=== PATIENT | male | born 1975 | race Caucasian/White ===

== ENCOUNTER 2024-05-09 09:13 | Emergency (ER) | payer OTHER, SELFPAY ==
--- NOTE | 2024-05-09 09:17 | ED.EAR ---
HPI - Ear Problem General Chief complaint: Ear Stated complaint: EARACHE Time Seen by Provider: 05/09/24 09:30 Source: patient Mode of arrival: ambulatory Limitations: no limitations History of Present Illness HPI Narrative: Onel is a 49-year-old male patient presenting to the clinic today with complaints of right ear pain/pressure/tinnitus. He reports this has been going on for few days. Had a cold last week and still has somewhat of a lingering cough and mild congestion. Denies any fever or chills. Denies any dizziness, visual changes, or headache. Related Data Allergies Allergy/AdvReac Type Severity Reaction Status Date / Time No Known Allergies Allergy Verified 05/09/24 09:50 Review of Systems Review of Systems: Pertinent positives per HPI. Patient denies any fever, chills, rash, headache, visual changes, dizziness, sore throat, shortness of breath, chest pain, palpitations, nausea, vomiting, diarrhea, constipation, abdominal pain, or any urinary issues. PMFSH Comments At the time of my signature, I reviewed and agree with the nursing past medical, surgical, social, and family history. There is no relevant family history pertinent to the patient complaint. Exam Narrative: General: Well-developed, well nourished, in no apparent distress Head: Normocephalic, atraumatic Eyes: Pupils equally round and reactive to light bilaterally, EOM intact, sclera and conjunctive clear, no discharge, lids normal Ears: TMs intact, fluid noted behind the TM with mild congestion right worse than left, ear canals clear, no drainage, grossly hearing normal. Nose: Nares patent, clear discharge, no inflammation, no sinus tenderness. Mouth: Oropharynx without lesions or masses, good dentition, MMM. Neck: Supple, trachea midline, no enlargement of anterior or posterior cervical nodes, no thyroid masses or goiter palpable. Cardio: Regular rate and rhythm, s1 and s2 normal, no murmur appreciated. Resp: Clear to auscultation bilaterally anteriorly and posteriorly, no rhonchi, rales, wheezing or rubs Course Course Emergency Course: Portions of this record may have been created with voice recognition software. Level of Care: Express Care Visit Vital Signs Vital signs: Vital signs reviewed Medical Decision Making MDM Narrative Medical decision making narrative: At the time of visit patient is resting comfortably on the exam table. Patient appears to be nontoxic. Plan: I suspect patient has bilateral serous otitis media as well as tinnitus in the right ear. Prescription for prednisone was sent to the pharmacy. Recommend completing Flonase and [id number]-[id number] histamine such as Zyrtec or Claritin as well. What the patient follow-up with his primary care doctor or ENT provider. Supportive measures were discussed with the patient and they voiced understanding discharge instructions and agrees to treatment plan. Return precautions reviewed Differential Diagnosis Differential Diagnosis: Otitis media, otitis externa eustachian tube dysfunction, cerumen impaction, upper respiratory infection, serous otitis, tinnitus, Meniere's disease Discharge Plan Discharge Clinical Impression: Acute serous otitis media, Tinnitus Patient Disposition: Home, Self-Care Condition: Stable Instructions: Antibiotic Form, Tinnitus (ED), Fluid In The Ear (Serous Otitis Media) (ED) Additional Instructions: Take any prescribed medications only as directed-prednisone Tylenol/motrin as needed for pain May use Flonase and [id number] antihistamine such as Zyrtec or Claritin. May use heating pad to alleviate pain If you get recurrent ear infections it may be warranted to follow up with ENT. Follow up with your PCP in 3-5 days if symptoms persist. Prescriptions: New prednisone 20 mg tablet 40 mg PO DAILY 5 Days Qty: 10 0RF Follow-up/Referrals: Magnus Thapa MD [Primary Care Provider] - Time of Disposition: 09:3
[2024-05-09 09:23] VITALS: BP 154/104; PULSE 80; RESP 16; TEMP 36.7; O2SAT 100
== END 2024-05-09 09:41 | disposition home or self-care (01) ==
PROVIDERS: Emergency Provider Nurse Practitioner Family; PCP Emergency Medicine
DX: H65.03 Acute serous otitis media, bilateral (principal); H93.11 Tinnitus, right ear
CPT/HCPCS: 99213; G0463

== ENCOUNTER 2024-07-29 10:20 | Emergency (ER) | payer OTHER, SELFPAY ==
[2024-07-29 10:30] VITALS: BP 131/99; PULSE 77; RESP 16; TEMP 36.5; O2SAT 100
--- NOTE | 2024-07-29 10:36 | ED_ITS ---
HPI - Ear Problem General Chief complaint: Ear Stated complaint: Ear Pain Time Seen by Provider: 07/29/24 10:36 Source: patient Mode of arrival: ambulatory Limitations: no limitations History of Present Illness HPI Narrative: Onel is a 49-year-old male patient presenting to the clinic today with complaints of 1-2 day history of right ear pain. He reports he had an ear infection 3 months ago and was given amoxicillin and that took care but however now it has returned. He denies any URI symptoms, fevers, chills, body aches. Related Data Allergies Allergy/AdvReac Type Severity Reaction Status Date / Time No Known Allergies Allergy Verified 07/29/24 10:34 Review of Systems Review of Systems: Pertinent positives per HPI. Patient denies any fever, chills, rash, headache, visual changes, dizziness, cough, shortness of breath, chest pain, palpitations, nausea, vomiting, diarrhea, constipation, abdominal pain, or any urinary issues. PMFSH Comments At the time of my signature, I reviewed and agree with the nursing past medical, surgical, social, and family history. There is no relevant family history pertinent to the patient complaint. Exam Narrative: General: Well-developed, well nourished, in no apparent distress Head: Normocephalic, atraumatic Eyes: Pupils equally round and reactive to light bilaterally, EOM intact, sclera and conjunctive clear, no discharge, lids normal Ears: Left TM intact and clear, right TM intact, bulging, red, ear canals clear, no drainage, grossly hearing normal. Nose: Nares patent, no discharge, no inflammation, no sinus tenderness. Mouth: Oral pharynx without lesions or masses, good dentition, MMM. Neck: Supple, trachea midline, no enlargement of anterior or posterior cervical nodes, no thyroid masses or goiter palpable. Cardio: Regular rate and rhythm, s1 and s2 normal, no murmur appreciated. Resp: Clear to auscultation bilaterally, no rhonchi, rales, wheezing or rubs Course Course Emergency Course: Portions of this record may have been created with voice recognition software. Level of Care: Express Care Visit Vital Signs Vital signs: Vital Signs Temperature 36.5 C 07/29/24 10:30 Pulse Rate 77 07/29/24 10:30 Respiratory Rate 16 07/29/24 10:30 Blood Pressure 131/99 H 07/29/24 10:30 Pulse Oximetry 100 07/29/24 10:30 Temperature 36.5 C 07/29/24 10:30 Pulse Rate 77 07/29/24 10:30 Respiratory Rate 16 07/29/24 10:30 Blood Pressure 131/99 H 07/29/24 10:30 Pulse Oximetry 100 07/29/24 10:30 Vital signs reviewed Medical Decision Making MDM Narrative Medical decision making narrative: At the time of visit patient is resting comfortably on the exam table. Patient appears to be nontoxic. Plan: I suspect patient has otitis media right ear. Prescription for Augmentin was sent to the pharmacy. Supportive measures were discussed with the patient and they voiced understanding discharge instructions and agrees to treatment plan. Return precautions reviewed Differential Diagnosis Differential Diagnosis: Otitis media, otitis externa, eustachian tube dysfunction, cerumen impaction, upper respiratory infection, serous otitis Vital Signs Vital Signs: Vital Signs Temperature 36.5 C 07/29/24 10:30 Pulse Rate 77 07/29/24 10:30 Respiratory Rate 16 07/29/24 10:30 Blood Pressure 131/99 H 07/29/24 10:30 Pulse Oximetry 100 07/29/24 10:30 Temperature 36.5 C 07/29/24 10:30 Pulse Rate 77 07/29/24 10:30 Respiratory Rate 16 07/29/24 10:30 Blood Pressure 131/99 H 07/29/24 10:30 Pulse Oximetry 100 07/29/24 10:30 Discharge Plan Discharge Clinical Impression: Acute right otitis media Patient Disposition: Home, Self-Care Condition: Stable Instructions: Antibiotic Form, Ear Infection (ED) Additional Instructions: Take any prescribed medications only as directed-Augmentin Tylenol/motrin as needed for pain May use heating pad to alleviate pain If you get recurrent ear infections it may be warranted to follow up with ENT. Follow up with your PCP in 3-5 days if symptoms persist. Prescriptions: New amoxicillin-pot clavulanate 875-125 mg tablet 1 tablet PO Q12H 10 Days Qty: 20 0RF Follow-up/Referrals: PHYSICIAN,PROFESSOR OF THEATER [Primary Care Provider] - Time of Disposition: 10:37 Quality NIHSS Nursing Documentation ED NIHSS nursing documentation: reviewed/agree
== END 2024-07-29 10:48 | disposition home or self-care (01) ==
PROVIDERS: Emergency Provider Nurse Practitioner Family
DX: H66.91 Otitis media, unspecified, right ear (principal)
CPT/HCPCS: 99213; G0463

== ENCOUNTER 2024-09-06 14:00 | Emergency (ER) | payer OTHER, SELFPAY ==
[2024-09-06 14:11] VITALS: BP 158/110; PULSE 81; RESP 18; TEMP 36.2; O2SAT 100
--- NOTE | 2024-09-06 14:24 | ED.EAR ---
HPI - Ear Problem General Chief complaint: Ear Stated complaint: Ear Left Time Seen by Provider: 09/06/24 14:24 Source: patient Mode of arrival: ambulatory Limitations: no limitations History of Present Illness HPI Narrative: 49-year-old male presents with complaint of left ear pain for 1 day. Patient reports recent URI, symptoms resolving. Afebrile. All systems reviewed and negative except as noted above. Related Data Allergies Allergy/AdvReac Type Severity Reaction Status Date / Time No Known Allergies Allergy Verified 09/06/24 14:20 Review of Systems Review of Systems: CONSTITUTIONAL: Denies fever, chills, or sweats. EYES: Denies visual changes, redness, or discharge. ENT: Denies rhinorrhea, congestion, sore throat. Reports left ear pain. CARDIOVASCULAR: Denies chest pain, palpitations, or edema. RESPIRATORY: Denies cough or dyspnea. GASTROINTESTINAL: Denies abdominal pain, nausea, vomiting, or diarrhea. GENITOURINARY: Denies dysuria or hematuria. SKIN: Denies rash or itching. MUSCULOSKELETAL: Denies back pain, joint pain, or myalgia. NEUROLOGIC: Denies headache, numbness, or weakness. PSYCHIATRIC: Denies anxiety or depression. All other systems reviewed are negative, except as documented in HPI. PMFSH Comments At time of signature, agree with nursing past medical, surgical, social and family history. There is no relevant family history pertinent to the presenting complaint. Exam Narrative: GENERAL: This is a well-nourished, well-developed patient, in no apparent distress. HEAD: normocephalic, atraumatic. EYES: PERRL. Sclera clear/white. Vision is grossly intact. EARS: External ears normal, auditory canals clear and without drainage, right TM normal. Left TM is erythematous bulging and bubbling with fluid. No perforation bilaterally. NOSE: External nose normal with clear nasal drainage with mild congestion THROAT: Mucous membranes moist, posterior pharynx clear. NECK: Neck supple, non-tender without lymphadenopathy, masses or thyromegaly. CARDIOVASCULAR: Regular rate and rhythm without murmurs, gallops, or rubs. RESPIRATORY: Clear to auscultation. Breath sounds equal bilaterally. No wheezes, rales, or rhonchi. SKIN: warm, Dry, intact with no suspicious lesions or rash, good texture and turgor. NEURO: awake, alert, and oriented to person, place and time. There were no obvious focal neurologic abnormalities. EXTREMITIES: No joint tenderness, effusion, or edema noted. Course Course Level of Care: Express Care Visit Vital Signs Vital signs: Vital Signs Temperature 36.2 C L 09/06/24 14:11 Pulse Rate 81 09/06/24 14:11 Respiratory Rate 18 09/06/24 14:11 Blood Pressure 158/110 H 09/06/24 14:11 Pulse Oximetry 100 09/06/24 14:11 Oxygen Delivery Room Air 09/06/24 14:11 Temperature 36.2 C L 09/06/24 14:11 Pulse Rate 81 09/06/24 14:11 Respiratory Rate 18 09/06/24 14:11 Blood Pressure 158/110 H 09/06/24 14:11 Pulse Oximetry 100 09/06/24 14:11 Oxygen Delivery Room Air 09/06/24 14:11 Reviewed Medical Decision Making MDM Narrative Medical decision making narrative: Patient is aware of diagnosis, understands and agrees to treatment plan. Anticipatory guidance given. Patient agrees to follow-up as directed and is aware of reasons to seek care at the emergency department. Portions of this record may have been created with voice recognition software Vital Signs Vital Signs: Vital Signs Temperature 36.2 C L 09/06/24 14:11 Pulse Rate 81 09/06/24 14:11 Respiratory Rate 18 09/06/24 14:11 Blood Pressure 158/110 H 09/06/24 14:11 Pulse Oximetry 100 09/06/24 14:11 Oxygen Delivery Room Air 09/06/24 14:11 Temperature 36.2 C L 09/06/24 14:11 Pulse Rate 81 09/06/24 14:11 Respiratory Rate 18 09/06/24 14:11 Blood Pressure 158/110 H 09/06/24 14:11 Pulse Oximetry 100 09/06/24 14:11 Oxygen Delivery Room Air 09/06/24 14:11 Discharge Plan Discharge Clinical Impression: Acute left otitis media, Elevated blood pressure reading Patient Disposition: Home, Self-Care Condition: Stable Instructions: Antibiotic Form, Ear Infection (ED) Additional Instructions: Take antibiotic as prescribed until gone. Take Zyrtec and use Flonase daily. Take ibuprofen or Tylenol every 6-8 hours as needed for pain. Your blood pressure is elevated today. Follow-up in 1 week with your primary care physician to recheck. Follow-up with your primary care physician if pain is not improving. Patient Language: Ukrainian Prescriptions: New amoxicillin 875 mg tablet 875 mg PO Q12H 10 Days Qty: 20 0RF Follow-up/Referrals: UNKNOWN,DOCTOR [Primary Care Provider] - Time of Disposition: 14:34
== END 2024-09-06 14:37 | disposition home or self-care (01) ==
PROVIDERS: Emergency Provider Nurse Practitioner Family
DX: H66.92 Otitis media, unspecified, left ear (principal); R03.0 Elevated blood-pressure reading, without diagnosis of hypertension
CPT/HCPCS: 99213; G0463

== ENCOUNTER 2024-10-29 08:00 | Emergency (ER) | payer OTHER, SELFPAY ==
--- NOTE | 2024-10-29 08:03 | ED_ITS ---
HPI - Ear Problem General Chief complaint: Ear Stated complaint: EARACHE Source: patient and RN notes reviewed Mode of arrival: ambulatory Limitations: no limitations History of Present Illness HPI Narrative: Patient is a 49-year-old male who presents to the [facility] with complaints of right ear pain. He states that the pain developed last night. He denies ear drainage. States that he has similar pain in his left ear it was diagnosed with an ear infection. He states that at that time, he waited and the infection got really bad. He wanted to come get checked out. He reports recent cold over the last week. Denies cough, chest pain, shortness of breath. Denies recent fever. Related Data Allergies Allergy/AdvReac Type Severity Reaction Status Date / Time No Known Allergies Allergy Verified 10/29/24 08:11 Review of Systems Review of Systems: CONSTITUTIONAL: Denies fever, chills, or sweats. EYES: Denies visual changes, redness, or discharge. ENT: Reports otalgia but denies sore throat CARDIOVASCULAR: Denies chest pain, palpitations, or edema. RESPIRATORY: Denies cough or dyspnea. GASTROINTESTINAL: Denies abdominal pain, nausea, vomiting, or diarrhea. GENITOURINARY: Denies dysuria or hematuria. SKIN: Denies rash or itching. MUSCULOSKELETAL: Denies back pain, joint pain, or myalgia. NEUROLOGIC: Denies headache, numbness, or weakness. Pertinent positives per HPI. PMFSH Comments At the time of my signature, I reviewed and agree with the nursing past medical, surgical, social, and family history. There is no relevant family history pertinent to the patient complaint. Exam Narrative: GENERAL: This is a well-nourished, well-developed patient, in no apparent distress. HEAD: normocephalic, atraumatic. EYES: Sclera clear/white. Vision is grossly intact. EARS: External ears normal, auditory canals clear and without drainage. Left TM normal without perforation. Right TM erythematous and bulging. Hearing grossly intact. NOSE: External nose normal with no obvious nasal discharge, nares without redness, no rhinorrhea. THROAT: Mucous membranes moist, posterior pharynx clear. NECK: Neck supple, non-tender without lymphadenopathy, masses or thyromegaly. CARDIOVASCULAR: Regular rate and rhythm without murmurs, gallops, or rubs. RESPIRATORY: Clear to auscultation. Breath sounds equal bilaterally. No wheezes, rales, or rhonchi. GASTROINTESTINAL: Abdomen soft, non-tender, nondistended. Bowel sounds are active. No hepato-splenomegaly, or palpable masses. No guarding. SKIN: warm, intact with no suspicious lesions or rash, good texture and turgor. NEURO: awake, alert, and oriented to person, place and time. There were no obvious focal neurologic abnormalities. Course Course Level of Care: Express Care Visit Vital Signs Vital signs: Vital Signs Temperature 96.8 F L 10/29/24 08:09 Pulse Rate 86 10/29/24 08:09 Respiratory Rate 16 10/29/24 08:09 Blood Pressure 147/100 H 10/29/24 08:09 Pulse Oximetry 100 10/29/24 08:09 Temperature 96.8 F L 10/29/24 08:09 Pulse Rate 86 10/29/24 08:09 Respiratory Rate 16 10/29/24 08:09 Blood Pressure 147/100 H 10/29/24 08:09 Pulse Oximetry 100 10/29/24 08:09 Reviewed Medical Decision Making MDM Narrative Medical decision making narrative: Take antibiotics as directed. May given ibuprofen and/or Tylenol as needed for pain and/or fever. Follow up with primary care provider in 7-10 days to have ear rechecked. Differential Diagnosis Differential Diagnosis: otitis media, otitis externa, cerumen impaction Vital Signs Vital Signs: Vital Signs Temperature 96.8 F L 10/29/24 08:09 Pulse Rate 86 10/29/24 08:09 Respiratory Rate 16 10/29/24 08:09 Blood Pressure 147/100 H 10/29/24 08:09 Pulse Oximetry 100 10/29/24 08:09 Temperature 96.8 F L 10/29/24 08:09 Pulse Rate 86 10/29/24 08:09 Respiratory Rate 16 10/29/24 08:09 Blood Pressure 147/100 H 10/29/24 08:09 Pulse Oximetry 100 10/29/24 08:09 Critical Care Time Critical Care Time Critical Care Time: No Discharge Plan Discharge Clinical Impression: Acute otitis media, right Patient Disposition: Home, Self-Care Condition: Stable Instructions: Antibiotic Form, Ear Infection (ED) Additional Instructions: Take antibiotics as directed. May given ibuprofen and/or Tylenol as needed for pain and/or fever. Follow up with primary care provider in 7-10 days to have ear rechecked. Patient Language: Latvian Prescriptions: New amoxicillin-pot clavulanate 875-125 mg tablet 1 tablet PO Q12H 10 Days Qty: 20 0RF No Action amoxicillin 875 mg tablet 875 mg PO Q12H 10 Days Qty: 20 0RF Follow-up/Referrals: Sara,Tiffani [Other] Time of Disposition: 08:15
[2024-10-29 08:09] VITALS: BP 147/100; PULSE 86; RESP 16; TEMP 36; O2SAT 100
--- NOTE | 2024-10-29 08:57 | PC.NURSE ---
PROVIDER WAS AWARE OF VS PRIOR TO DC. PT HAS RECENTLY BEEN STARTED ON BP MEDICATION
== END 2024-10-29 08:20 | disposition home or self-care (01) ==
PROVIDERS: Emergency Provider Nurse Practitioner
DX: H66.91 Otitis media, unspecified, right ear (principal)
CPT/HCPCS: 99213; G0463